=== PATIENT | female | born 1965 | race African-American/Black ===

== ENCOUNTER 2017-11-10 05:39 | Inpatient (IN) ==
[2017-10-26 12:00] LABS: Apearance,Urine CLEAR (Clear); Bacteria,Urine Occasional /HPF (Few); Bilirubin,Urine Negative (Negative); Blood, Urine Negative (Negative); Glucose,Urine (UA) Negative (Negative); Ketones,Urine Negative (Negative); Mucus,Urine Occasional /LPF (Occasional); Nitrite,Urine Negative (Negative); Protein,Urine Negative; RBC,Urine <1 /HPF (0-4); Squamous Epithelial Cell,Urine Occasional /HPF (0-10); Urine Color Yellow (Yellow); Urine Specific Gravity 1.008 (1.001-1.035); Urine Urobilinogen < 2.0 EU/DL (0.2-1.0); WBC,Urine <1 /HPF (0-6)
[2017-10-26 12:01] LABS: PT Patient Result 10.7 SECS; Partial Thromboplastin Time 26.1 SECS (0-40)
[2017-10-26 12:33] LABS: Albumin 4.1 G/DL (3.4-5.0); Bilirubin,Total 0.9 MG/DL (0.2-1.0); Calcium 9.8 MG/DL (8.5-10.1); Osmolality,Calculated 274.5 MOS/KG (273-304); Total Protein 8.5 G/DL (6.4-8.3)
[2017-11-10] MEDS ORDERED: VANCOMYCIN INJ 1,000 MG in SODIUM CHLORIDE 0.9% 250 ML IV ONE (06:00)
[2017-11-10] MEDS ORDERED: ceFAZolin 1,000 MG in SYRINGE 1 EACH IV ONE (06:00)
[2017-11-10 06:31] LABS: Basophils # 0.1 10*3/uL (0.0-0.2); Eosinophils # 0.2 10*3/uL (0.0-0.87); Eosinophils % 2.7 % (0.00-10.9); Hematocrit 30.2 VOL% (35.7-47.0); Hemoglobin 10.2 GM/DL (12.0-16.0); Immature Granulocytes % 0.4 %; Immature Granulocytes Absolute 0.03 #; Lymphocytes # 2.2 10*3/uL (1.4-4.0); Lymphocytes % 28.5 % (21.3-54.2); Mean Corpuscular HGB Conc 33.8 GM/DL (32-36); Mean Corpuscular Hemoglobin 25 PG (27-34); Mean Corpuscular Volume 72.6 FL (87-102); Mean Platelet Volume 10.2 FL (9.6-12.0); Monocytes # 0.6 10*3/uL (0.11-0.8); NRBC # 0.02 10*3/uL; Neutrophils # 4.6 10*3/uL (1.4-7.4); Neutrophils % 59.4 % (38.7-73.9); Platelet Count 396 T/CUMM (130-400); Red Blood Count 4.16 MC/CUMM (3.8-5.5); Red Cell Distribution Width 19.5 % (9.3-17.3); White Blood Count 7.7 T/CUMM (4-12)
[2017-11-10] MEDS ORDERED: FAMOTIDINE 20 MG TABLET PO ONE (06:32)
[2017-11-10] MEDS ORDERED: DIAZEPAM 5 MG TABLET PO ONE (06:32)
[2017-11-10] MEDS ORDERED: ceFAZolin 1,000 MG VIAL ONE (06:54)
[2017-11-10] MEDS ORDERED: VANCOMYCIN 1,000 MG VIAL ONE ×2 (06:54→11:50)
[2017-11-10] MEDS ORDERED: FAMOTIDINE 20 MG TABLET ONE (06:54)
[2017-11-10] MEDS ORDERED: DIAZEPAM 5 MG TABLET ONE (06:54)
[2017-11-10] MEDS ORDERED: LACTATED RINGERS 1,000 ML IV SCH (07:30)
[2017-11-10] MEDS ORDERED: TRANEXAMIC ACID 1,000 MG/10 ML VIAL IV ONE (09:44)
[2017-11-10] MEDS ORDERED: BACITRACIN OINT 0.9 GM PACK TOP ONE (09:44)
[2017-11-10] MEDS ORDERED: MORPHINE 10 MG/10 ML VIAL ONE (09:58)
[2017-11-10] MEDS ORDERED: KETOROLAC 30 MG/1 ML VIAL IV SCH (10:30)
[2017-11-10] MEDS ORDERED: ROPIVACAINE 0.5% 30 ML VIAL ONE (12:45)
[2017-11-10] MEDS ORDERED: PROPOFOL 200 MG/20 ML VIAL IV ONE (13:11)
[2017-11-10] MEDS ORDERED: DEXAMETHASONE 10 MG/1 ML VIAL ONE (13:12)
[2017-11-10] MEDS ORDERED: MIDAZOLAM 2 MG/2 ML VIAL ONE (13:12)
[2017-11-10] MEDS ORDERED: KETAMINE 500 MG/10 ML VIAL ONE (13:12)
[2017-11-10] MEDS ORDERED: fentaNYL 100 MCG/2 ML VIAL ONE (13:12)
[2017-11-10] MEDS ORDERED: SODIUM CHLORIDE 0.9% 100 ML IV ONE (13:13)
[2017-11-10] MEDS ORDERED: MAGNESIUM HYDROXIDE SUSP 30 ML UDCUP PO PRN (15:00)
[2017-11-10] MEDS ORDERED: diphenhydrAMINE 50 MG/1 ML VIAL IV PRN (15:00)
[2017-11-10] MEDS ORDERED: hydrOXYzine HCL 25 MG/1 ML VIAL IM PRN (15:00)
[2017-11-10] MEDS ORDERED: ONDANSETRON 4 MG/2 ML VIAL IV PRN (15:00)
[2017-11-10] MEDS ORDERED: MORPHINE 2 MG/1 ML SYRINGE IV PRN (15:00)
[2017-11-10] MEDS ORDERED: diphenhydrAMINE CAP 25 MG CAPSULE PO PRN (15:30)
[2017-11-10] MEDS: CEFAZOLIN IV SCH ×2 (15:42→23:13)
[2017-11-10] MEDS: LACTATED RINGERS 1,000 ML IV SCH ×3 (15:42→23:17)
[2017-11-10] MEDS ORDERED: VANCOMYCIN INJ 1,000 MG in SODIUM CHLORIDE 0.45% 250 ML IV ONE (18:31)
[2017-11-10] MEDS: BACLOFEN 10 MG TABLET PO SCH (20:51)
[2017-11-10] MEDS: DOCUSATE SODIUM 100 MG CAPSULE PO SCH (20:52)
[2017-11-10] MEDS: HYDROXYUREA 500 MG CAPSULE PO SCH (20:52)
[2017-11-10] MEDS ORDERED: LUBIPROSTONE 8 MCG CAPSULE PO PRN (21:00)
[2017-11-10] MEDS: MORPHINE 2 MG/1 ML SYRINGE IV PRN (22:06)
[2017-11-11] MEDS: FONDAPARINUX 2.5 MG/0.5 ML SYRINGE SUBCUT SCH (04:38)
[2017-11-11] MEDS: LACTATED RINGERS 1,000 ML IV SCH (04:39)
[2017-11-11 07:29] LABS: Basophils % 0.2 % (0.0-0.8); Hematocrit 26.6 VOL% (35.7-47.0); Immature Granulocytes % 0.4 %; Immature Granulocytes Absolute 0.04 #; Lymphocytes # 1.2 10*3/uL (1.4-4.0); Lymphocytes % 13.2 % (21.3-54.2); Mean Corpuscular HGB Conc 33.8 GM/DL (32-36); Mean Corpuscular Hemoglobin 25 PG (27-34); Mean Corpuscular Volume 73.7 FL (87-102); Mean Platelet Volume 10.2 FL (9.6-12.0); Monocytes # 0.8 10*3/uL (0.11-0.8); Monocytes % 8.7 % (1.7-12.7); Neutrophils # 7.2 10*3/uL (1.4-7.4); Neutrophils % 77.5 % (38.7-73.9); Platelet Count 302 T/CUMM (130-400); Red Blood Count 3.61 MC/CUMM (3.8-5.5); Red Cell Distribution Width 19.5 % (9.3-17.3); White Blood Count 9.3 T/CUMM (4-12)
[2017-11-11] MEDS ORDERED: FUROSEMIDE 20 MG/2 ML VIAL IV PRN (07:44)
[2017-11-11] MEDS ORDERED: SODIUM CHLORIDE 0.9% 1,000 ML IV PRN (07:44)
[2017-11-11 07:51] LABS: Osmolality,Calculated 276.5 MOS/KG (273-304); Potassium 4.3 MMOL/L (3.5-5.1)
[2017-11-11] MEDS: MORPHINE 2 MG/1 ML SYRINGE IV PRN ×4 (08:54→23:20)
[2017-11-11] MEDS: ALLOPURINOL 300 MG TABLET PO SCH (09:05)
[2017-11-11] MEDS: DOCUSATE SODIUM 100 MG CAPSULE PO SCH ×2 (09:05→21:35)
[2017-11-11] MEDS: HYDROXYUREA 500 MG CAPSULE PO SCH ×2 (09:05→21:34)
[2017-11-11] MEDS: FOLIC ACID 1 MG TABLET PO SCH (09:05)
[2017-11-11] MEDS: BACLOFEN 10 MG TABLET PO SCH (21:34)
[2017-11-12 04:05] LABS: Basophils # 0.1 10*3/uL (0.0-0.2); Basophils % 0.8 % (0.0-0.8); Eosinophils # 0.1 10*3/uL (0.0-0.87); Eosinophils % 0.6 % (0.00-10.9); Hematocrit 32.7 VOL% (35.7-47.0); Hemoglobin 10.9 GM/DL (12.0-16.0); Immature Granulocytes % 0.5 %; Immature Granulocytes Absolute 0.05 #; Lymphocytes # 2.9 10*3/uL (1.4-4.0); Lymphocytes % 27.3 % (21.3-54.2); Mean Corpuscular HGB Conc 33.3 GM/DL (32-36); Mean Corpuscular Hemoglobin 26 PG (27-34); Mean Corpuscular Volume 77.1 FL (87-102); Mean Platelet Volume 11.7 FL (9.6-12.0); Monocytes # 1.1 10*3/uL (0.11-0.8); Monocytes % 10.3 % (1.7-12.7); Neutrophils # 6.5 10*3/uL (1.4-7.4); Neutrophils % 60.5 % (38.7-73.9); Platelet Count 285 T/CUMM (130-400); Red Blood Count 4.24 MC/CUMM (3.8-5.5); Red Cell Distribution Width 20.9 % (9.3-17.3); White Blood Count 10.8 T/CUMM (4-12)
[2017-11-12] MEDS: FONDAPARINUX 2.5 MG/0.5 ML SYRINGE SUBCUT SCH (05:17)
[2017-11-12] MEDS: MORPHINE 2 MG/1 ML SYRINGE IV PRN ×3 (07:35→21:32)
[2017-11-12] MEDS: HYDROXYUREA 500 MG CAPSULE PO SCH ×2 (09:30→21:20)
[2017-11-12] MEDS: DOCUSATE SODIUM 100 MG CAPSULE PO SCH ×2 (09:30→21:20)
[2017-11-12] MEDS: FOLIC ACID 1 MG TABLET PO SCH (09:30)
[2017-11-12] MEDS: ALLOPURINOL 300 MG TABLET PO SCH (09:30)
[2017-11-12] MEDS: BACLOFEN 10 MG TABLET PO SCH (21:20)
[2017-11-13] MEDS: MORPHINE 2 MG/1 ML SYRINGE IV PRN ×4 (01:21→23:48)
[2017-11-13 03:34] LABS: Basophils # 0.1 10*3/uL (0.0-0.2); Eosinophils # 0.2 10*3/uL (0.0-0.87); Hematocrit 33.5 VOL% (35.7-47.0); Hemoglobin 11.3 GM/DL (12.0-16.0); Immature Granulocytes % 0.3 %; Immature Granulocytes Absolute 0.03 #; Lymphocytes # 3.1 10*3/uL (1.4-4.0); Lymphocytes % 34.1 % (21.3-54.2); Mean Corpuscular HGB Conc 33.7 GM/DL (32-36); Mean Corpuscular Hemoglobin 26 PG (27-34); Mean Corpuscular Volume 75.6 FL (87-102); Mean Platelet Volume 11.3 FL (9.6-12.0); Monocytes # 1.1 10*3/uL (0.11-0.8); Monocytes % 11.6 % (1.7-12.7); Neutrophils # 4.7 10*3/uL (1.4-7.4); Platelet Count 275 T/CUMM (130-400); Red Blood Count 4.43 MC/CUMM (3.8-5.5); Red Cell Distribution Width 21.1 % (9.3-17.3); White Blood Count 9.1 T/CUMM (4-12)
[2017-11-13] MEDS: FOLIC ACID 1 MG TABLET PO SCH (08:54)
[2017-11-13] MEDS: DOCUSATE SODIUM 100 MG CAPSULE PO SCH ×2 (08:54→21:32)
[2017-11-13] MEDS: HYDROXYUREA 500 MG CAPSULE PO SCH ×2 (08:54→21:32)
[2017-11-13] MEDS: ALLOPURINOL 300 MG TABLET PO SCH (08:54)
[2017-11-13] MEDS: APIXABAN 2.5 MG TABLET PO SCH ×2 (08:54→21:32)
[2017-11-13] MEDS: BACLOFEN 10 MG TABLET PO SCH (21:33)
[2017-11-14] MEDS: FOLIC ACID 1 MG TABLET PO SCH (08:45)
[2017-11-14] MEDS: APIXABAN 2.5 MG TABLET PO SCH ×2 (08:45→21:31)
[2017-11-14] MEDS: DOCUSATE SODIUM 100 MG CAPSULE PO SCH ×2 (08:45→21:31)
[2017-11-14] MEDS: HYDROXYUREA 500 MG CAPSULE PO SCH ×2 (08:45→21:31)
[2017-11-14] MEDS: ALLOPURINOL 300 MG TABLET PO SCH (08:45)
[2017-11-14] MEDS: BACLOFEN 10 MG TABLET PO SCH (21:31)
[2017-11-15] MEDS: HYDROXYUREA 500 MG CAPSULE PO SCH ×2 (11:32→22:46)
[2017-11-15] MEDS: ALLOPURINOL 300 MG TABLET PO SCH (11:33)
[2017-11-15] MEDS: APIXABAN 2.5 MG TABLET PO SCH ×2 (11:33→22:57)
[2017-11-15] MEDS: DOCUSATE SODIUM 100 MG CAPSULE PO SCH ×2 (11:33→22:46)
[2017-11-15] MEDS: FOLIC ACID 1 MG TABLET PO SCH (11:33)
[2017-11-15] MEDS: BACLOFEN 10 MG TABLET PO SCH (22:46)
[2017-11-16] MEDS: FOLIC ACID 1 MG TABLET PO SCH (10:23)
[2017-11-16] MEDS: HYDROXYUREA 500 MG CAPSULE PO SCH ×2 (10:23→21:07)
[2017-11-16] MEDS: APIXABAN 2.5 MG TABLET PO SCH ×2 (10:23→21:08)
[2017-11-16] MEDS: ALLOPURINOL 300 MG TABLET PO SCH (10:23)
[2017-11-16] MEDS: DOCUSATE SODIUM 100 MG CAPSULE PO SCH ×2 (10:23→21:08)
[2017-11-16] MEDS: BACLOFEN 10 MG TABLET PO SCH (21:07)
[2017-11-17 07:26] LABS: Basophils # 0.1 10*3/uL (0.0-0.2); Basophils % 1.5 % (0.0-0.8); Eosinophils # 0.5 10*3/uL (0.0-0.87); Eosinophils % 7.9 % (0.00-10.9); Hematocrit 34.6 VOL% (35.7-47.0); Hemoglobin 11.3 GM/DL (12.0-16.0); Immature Granulocytes Absolute 0.06 #; Lymphocytes # 1.9 10*3/uL (1.4-4.0); Lymphocytes % 32.1 % (21.3-54.2); Mean Corpuscular HGB Conc 32.7 GM/DL (32-36); Mean Corpuscular Hemoglobin 25 PG (27-34); Mean Corpuscular Volume 76.4 FL (87-102); Mean Platelet Volume 10.6 FL (9.6-12.0); Monocytes # 0.6 10*3/uL (0.11-0.8); Monocytes % 10.3 % (1.7-12.7); Neutrophils # 2.8 10*3/uL (1.4-7.4); Neutrophils % 47.2 % (38.7-73.9); Platelet Count 279 T/CUMM (130-400); Red Blood Count 4.53 MC/CUMM (3.8-5.5); Red Cell Distribution Width 22.3 % (9.3-17.3)
[2017-11-17 07:43] LABS: Calcium 9.1 MG/DL (8.5-10.1); Osmolality,Calculated 275.7 MOS/KG (273-304); Potassium 4.2 MMOL/L (3.5-5.1)
[2017-11-17 08:02] LABS: Hypochromasia 1+; Microcytosis 1+; Target Cells 1+
[2017-11-17 08:03] LABS: Anisocytosis 1+; Platelet Estimate Normal; Spherocytes Few
[2017-11-17] MEDS: DOCUSATE SODIUM 100 MG CAPSULE PO SCH (09:35)
[2017-11-17] MEDS: FOLIC ACID 1 MG TABLET PO SCH (09:35)
[2017-11-17] MEDS: HYDROXYUREA 500 MG CAPSULE PO SCH (09:35)
[2017-11-17] MEDS: ALLOPURINOL 300 MG TABLET PO SCH (09:36)
[2017-11-17] MEDS: APIXABAN 2.5 MG TABLET PO SCH (09:36)
[2017-11-17 11:36] VITALS: BP 155/99
== END 2017-11-17 13:20 | disposition swing bed (61) | DRG 470 ==
LOC: N.SDSINP 05:39 → N.3E 13:50
PROVIDERS: ADMIT Orthopaedic Surgery; ATTEND Orthopaedic Surgery

== ENCOUNTER 2021-10-20 05:47 | Inpatient (IN) ==
[2021-10-20] MEDS ORDERED: VANCOMYCIN INJ 1,000 MG in SODIUM CHLORIDE 0.9% 250 ML IV ONE ×2 (06:00→16:58)
[2021-10-20] MEDS ORDERED: fentaNYL 100 MCG/2 ML VIAL ONE ×3 (06:13→07:26)
[2021-10-20] MEDS ORDERED: MIDAZOLAM 2 MG/2 ML VIAL ONE (06:13)
[2021-10-20] MEDS ORDERED: ROPIVACAINE 0.5% 30 ML VIAL ONE (06:19)
[2021-10-20] MEDS ORDERED: DEXAMETHASONE 4 MG/1 ML VIAL ONE (06:19)
[2021-10-20] MEDS ORDERED: GABAPENTIN 400 MG CAPSULE PO ONE (06:35)
[2021-10-20] MEDS ORDERED: FAMOTIDINE 20 MG TABLET PO ONE (06:35)
[2021-10-20] MEDS ORDERED: ACETAMINOPHEN 500 MG TABLET PO ONE (06:35)
[2021-10-20] MEDS ORDERED: DIAZEPAM 5 MG TABLET PO ONE (06:35)
[2021-10-20 06:38] LABS: Basophils # 0.1 10*3/uL (0.0-0.2); Basophils % 2.1 % (0.0-0.8); Eosinophils # 0.1 10*3/uL (0.0-0.87); Eosinophils % 1.9 % (0.00-10.9); Hematocrit 31.2 VOL% (35.7-47.0); Hemoglobin 9.9 GM/DL (12.0-16.0); Immature Granulocytes % 0.3 %; Immature Granulocytes Absolute 0.02 #; Lymphocytes # 2.1 10*3/uL (1.4-4.0); Lymphocytes % 33.3 % (21.3-54.2); Mean Corpuscular HGB Conc 31.7 GM/DL (32-36); Mean Corpuscular Volume 78.6 FL (87-102); Mean Platelet Volume 9.7 FL (9.6-12.0); Monocytes % 10.7 % (1.7-12.7); Neutrophils % 51.7 % (38.7-73.9); Platelet Count 423 T/CUMM (130-400); Red Blood Count 3.97 MC/CUMM (3.8-5.5); Red Cell Distribution Width 17.5 % (9.3-17.3); White Blood Count 6.2 T/CUMM (4-12)
[2021-10-20] MEDS ORDERED: ACETAMINOPHEN 500 MG TABLET ONE (06:40)
[2021-10-20] MEDS ORDERED: BACITRACIN OINT 0.9 GM PACK TOP ONE (06:45)
[2021-10-20] MEDS ORDERED: LACTATED RINGERS 1,000 ML IV SCH (07:00)
[2021-10-20] MEDS ORDERED: TRANEXAMIC ACID 1,000 MG/10 ML VIAL ONE (07:53)
[2021-10-20] MEDS ORDERED: LIDOCAINE 2% 5 ML VIAL ONE (07:53)
[2021-10-20] MEDS ORDERED: ROCURONIUM 50 MG/5 ML VIAL IV ONE (07:53)
[2021-10-20] MEDS ORDERED: SEVOFLURANE 1 UNIT/15 MINUTE INH ONE ×5 (07:53→08:26)
[2021-10-20] MEDS ORDERED: propofoL 200 MG/20 ML VIAL IV ONE (07:53)
[2021-10-20] MEDS ORDERED: ONDANSETRON 4 MG/2 ML VIAL ONE (07:53)
[2021-10-20] MEDS ORDERED: LABETALOL 20 MG/4 ML SYRINGE IV ONE (07:54)
[2021-10-20] MEDS ORDERED: KETOROLAC 30 MG/1 ML VIAL ONE (07:54)
[2021-10-20] MEDS ORDERED: VANCOMYCIN 1,000 MG VIAL ONE (08:25)
[2021-10-20] MEDS ORDERED: SUGAMMADEX 200 MG/2 ML VIAL IV ONE (08:43)
[2021-10-20] MEDS ORDERED: LACTATED RINGERS 1,000 ML IV ONE (08:52)
[2021-10-20] MEDS ORDERED: HYDROmorphone 2 MG/1 ML VIAL ONE (08:55)
[2021-10-20] MEDS ORDERED: GABAPENTIN 300 MG CAPSULE PO PRN (08:56)
[2021-10-20] MEDS ORDERED: CYCLOBENZAPRINE 10 MG TABLET PO PRN (08:56)
[2021-10-20] MEDS ORDERED: MAGNESIUM HYDROXIDE SUSP 30 ML UDCUP PO PRN (08:57)
[2021-10-20] MEDS ORDERED: ONDANSETRON 4 MG/2 ML VIAL IV PRN (08:57)
[2021-10-20] MEDS ORDERED: diphenhydrAMINE CAP 25 MG CAPSULE PO PRN (08:57)
[2021-10-20] MEDS ORDERED: RACEPINEPHRINE 0.5 ML NEB RESP TX ONE (09:12)
[2021-10-20] MEDS: LACTATED RINGERS 1,000 ML IV SCH ×2 (10:53→16:12)
[2021-10-20] MEDS: HYDROXYUREA 500 MG CAPSULE PO SCH (11:05)
[2021-10-20] MEDS: HYDROmorphone 2 MG/1 ML VIAL IV PRN ×2 (18:20→21:52)
[2021-10-20] MEDS: DOCUSATE SODIUM 100 MG CAPSULE PO SCH (21:53)
[2021-10-20] MEDS: APIXABAN 2.5 MG TABLET PO SCH (21:53)
[2021-10-21] MEDS: HYDROmorphone 2 MG/1 ML VIAL IV PRN ×7 (01:07→20:55)
[2021-10-21] MEDS: LACTATED RINGERS 1,000 ML IV SCH (02:49)
[2021-10-21 05:55] LABS: Basophils # 0.1 10*3/uL (0.0-0.2); Basophils % 0.5 % (0.0-0.8); Eosinophils % 0.2 % (0.00-10.9); Hematocrit 27.9 VOL% (35.7-47.0); Immature Granulocytes % 0.4 %; Immature Granulocytes Absolute 0.05 #; Lymphocytes # 1.7 10*3/uL (1.4-4.0); Lymphocytes % 13.9 % (21.3-54.2); Mean Corpuscular HGB Conc 32.3 GM/DL (32-36); Mean Corpuscular Volume 79.3 FL (87-102); Mean Platelet Volume 9.6 FL (9.6-12.0); Monocytes % 11.8 % (1.7-12.7); Neutrophils % 73.2 % (38.7-73.9); Platelet Count 339 T/CUMM (130-400); Red Blood Count 3.52 MC/CUMM (3.8-5.5); Red Cell Distribution Width 17.6 % (9.3-17.3); White Blood Count 11.9 T/CUMM (4-12)
[2021-10-21 06:11] LABS: Calcium 8.9 MG/DL (8.5-10.1); Osmolality,Calculated 268.1 MOS/KG (273-304); Potassium 4.2 MMOL/L (3.5-5.1)
[2021-10-21] MEDS: DOCUSATE SODIUM 100 MG CAPSULE PO SCH ×2 (09:04→20:55)
[2021-10-21] MEDS: FOLIC ACID 1 MG TABLET PO SCH (09:04)
[2021-10-21] MEDS: allopurinoL 100 MG TABLET PO SCH (09:04)
[2021-10-21] MEDS: ZINC GLUCONATE 50 MG TABLET PO SCH (09:04)
[2021-10-21] MEDS: CHOLECALCIFEROL 1,000 UNIT TABLET PO SCH (09:04)
[2021-10-21] MEDS: ASCORBIC ACID 500 MG TABLET PO SCH (09:04)
[2021-10-21] MEDS: APIXABAN 2.5 MG TABLET PO SCH ×2 (09:05→20:55)
[2021-10-21] MEDS: HYDROXYUREA 500 MG CAPSULE PO SCH (09:07)
[2021-10-22] MEDS: HYDROmorphone 2 MG/1 ML VIAL IV PRN ×2 (01:00→05:36)
[2021-10-22 05:23] LABS: Basophils # 0.1 10*3/uL (0.0-0.2); Basophils % 1.1 % (0.0-0.8); Eosinophils # 0.3 10*3/uL (0.0-0.87); Hematocrit 27.8 VOL% (35.7-47.0); Hemoglobin 9.1 GM/DL (12.0-16.0); Immature Granulocytes % 0.5 %; Immature Granulocytes Absolute 0.06 #; Lymphocytes # 3.1 10*3/uL (1.4-4.0); Lymphocytes % 25.3 % (21.3-54.2); Mean Corpuscular HGB Conc 32.7 GM/DL (32-36); Mean Corpuscular Volume 77.4 FL (87-102); Mean Platelet Volume 10.1 FL (9.6-12.0); Monocytes % 9.1 % (1.7-12.7); Platelet Count 361 T/CUMM (130-400); Red Blood Count 3.59 MC/CUMM (3.8-5.5); Red Cell Distribution Width 17.2 % (9.3-17.3); White Blood Count 12.2 T/CUMM (4-12)
[2021-10-22 07:47] VITALS: BP 149/88
[2021-10-22 07:56] LABS: Calcium 8.7 MG/DL (8.5-10.1); Osmolality,Calculated 272.8 MOS/KG (273-304); Potassium 3.9 MMOL/L (3.5-5.1)
[2021-10-22] MEDS ORDERED: BISACODYL 10 MG SUPP RECTAL ONE (08:34)
[2021-10-22] MEDS: CHOLECALCIFEROL 1,000 UNIT TABLET PO SCH (08:46)
[2021-10-22] MEDS: HYDROXYUREA 500 MG CAPSULE PO SCH (08:46)
[2021-10-22] MEDS: DOCUSATE SODIUM 100 MG CAPSULE PO SCH (08:46)
[2021-10-22] MEDS: ASCORBIC ACID 500 MG TABLET PO SCH (08:46)
[2021-10-22] MEDS: ZINC GLUCONATE 50 MG TABLET PO SCH (08:46)
[2021-10-22] MEDS: FOLIC ACID 1 MG TABLET PO SCH (08:46)
[2021-10-22] MEDS: allopurinoL 100 MG TABLET PO SCH (08:46)
[2021-10-22] MEDS: APIXABAN 2.5 MG TABLET PO SCH (08:46)
== END 2021-10-22 11:08 | disposition home health service (06) | DRG 468 ==
LOC: N.OR 05:47 → N.SDSINP 06:16 → N.3E 09:15
PROVIDERS: ADMIT Orthopaedic Surgery; ATTEND Orthopaedic Surgery